=== PATIENT | male | born 1960 | race Caucasian/White ===

== ENCOUNTER 2024-01-02 21:00 | Emergency (ER) | payer SELFPAY ==
[2024-01-02] MEDS: Ketorolac 30 MG/ML SDV IM ONE (23:25)
[2024-01-03] MEDS: Lidocaine 4% 1 each Patch TOP SCH (00:11)
== END 2024-01-03 00:23 | disposition home or self-care (01) ==
LOC: JP.ED 21:00
DX: M25.562 Pain in left knee (principal); Z88.0 Allergy status to penicillin; Z79.899 Other long term (current) drug therapy
CPT/HCPCS: 73562; 96372; 99283; J1885

== ENCOUNTER 2024-01-05 15:50 | Emergency (ER) | payer SELFPAY | END 2024-01-05 17:30 | disposition home or self-care (01) | LOC: JP.ED 15:50 | DX: M17.12 Unilateral primary osteoarthritis, left knee (principal); M54.50 Low back pain, unspecified; G89.29 Other chronic pain; E78.00 Pure hypercholesterolemia, unspecified; I10 Essential (primary) hypertension; F17.210 Nicotine dependence, cigarettes, uncomplicated; Z88.0 Allergy status to penicillin; Z79.899 Other long term (current) drug therapy; Z86.19 Personal history of other infectious and parasitic diseases; Z86.16 Personal history of COVID-19; Z90.49 Acquired absence of other specified parts of digestive tract | CPT/HCPCS: 99283 ==